=== PATIENT | female | born 1975 | race Caucasian/White ===

== ENCOUNTER 2017-07-24 10:29 | Emergency (ER) | payer MEDICARE, MEDICAID ==
[2017-07-24 12:02] VITALS: BP 100/71
--- NOTE | 2017-07-24 12:25 | UC ---
Skin Complaint HPI - HPI Summary HPI Summary: patient has quigley d alump on her upper right shoulder for the past few months, though it was a muscle knot, went to the massage therapsit to have it worked on , it is not larger, more painful, - History of Current Complaint Chief Complaint: UCSkin Time Seen by Provider: 07/24/17 12:09 Stated Complaint: SKIN COMPLAINT-NECK Hx Obtained From: Patient Hx Last Menstrual Period: 07/16/17 ?: No Onset/Duration: Sudden Onset, Worse Since - 2 days ago Skin Exposure Onset/Duration: Weeks Ago Timing: Constant Onset Severity: Mild Current Severity: Severe Pain Intensity: 10 Character: Swelling, Raised, Painful Aggravating Factor(s): Touch Alleviating Factor(s): Nothing - Allergy/Home Medications Allergies/Adverse Reactions: Allergies Allergy/AdvReac Type Severity Reaction Status Date / Time No Known Allergies Allergy Verified 07/24/17 11:58 Home Medications: Home Medications Ezetimibe TAB* [Zetia TAB*] 10 mg PO DAILY 07/24/17 [History Confirmed 07/24/17] Ibuprofen TAB* [Motrin TAB* 400 MG] 400 mg PO Q6H PRN 07/24/17 [History Confirmed 07/24/17] Norethindrone [Ryann] 0.35 mg PO DAILY 07/24/17 [History Confirmed 07/24/17] Rosuvastatin Calcium [Crestor] 20 mg PO DAILY 07/24/17 [History Confirmed ] Venlafaxine TAB (NF) [Effexor TAB (NF)] 150 mg PO DAILY 07/24/17 [History Confirmed 07/24/17] clonazePAM TAB(*) [KlonoPIN TAB(*)] 0.5 mg PO BEDTIME 07/24/17 [History Confirmed 07/24/17] Review of Systems Constitutional: Negative Skin: Other - large lump Eyes: Negative ENT: Negative Respiratory: Negative Cardiovascular: Negative Gastrointestinal: Negative Genitourinary: Negative Motor: Negative Neurovascular: Negative Musculoskeletal: Negative, Calf Tenderness Psychological: Negative Is Patient Immunocompromised?: No All Other Systems Reviewed And Are Negative: Yes PMH/Surg Hx/FS Hx/Imm Hx Previously Healthy: Yes - Surgical History Surgical History: Yes Surgery Procedure, Year, and Place: TRACHEOTOMY - Family History Known Family History: Negative: Cardiac Disease, Hypertension - Social History Alcohol Use: Occasionally Substance Use Type: None Smoking Status (MU): Never Smoked Tobacco Physical Exam Triage Information Reviewed: Yes Appearance: Well-Appearing, Well-Nourished, Pain Distress Vital Signs: Initial Vital Signs Temp 98.4 F 07/24/17 11:54 Pulse 75 07/24/17 11:54 Resp 16 07/24/17 11:54 BP 100/71 07/24/17 11:54 Pulse Ox 100 07/24/17 11:54 Vital Signs Reviewed: Yes Eye Exam: Normal ENT Exam: Normal Dental Exam: Normal Neck exam: Normal Neck: Positive: Supple, Nontender, No Lymphadenopathy Respiratory Exam: Normal Respiratory: Positive: Chest non-tender, Lungs clear, Normal breath sounds Cardiovascular Exam: Normal Cardiovascular: Positive: RRR, No Murmur, Pulses Normal Abdominal Exam: Normal Abdomen Description: Positive: Nontender, No Organomegaly Bowel Sounds: Positive: Present Musculoskeletal Exam: Normal Neurological Exam: Normal Psychological Exam: Normal Skin: Positive: significant lesion(s) - large cyst noted over right trap, movable, soft, non red, very tender to touch Course/Dx - Course Course Of Treatment: hx obtained, exam performed ,meds reviewed, treated for infection of subaceous cyst - Differential Diagnoses - Skin Complaint Differential Diagnoses: Abscess, Contact Dermatitis, Lymphadenitis, Lymphangitis - Diagnoses Provider Diagnoses: sebaceous cyst Discharge - Sign-Out/Discharge Documenting (check all that apply): Discharge - Discharge Plan Condition: Stable Disposition: HOME Prescriptions: Cephalexin CAP* [Keflex CAP*] 500 mg PO TID #21 cap Patient Education Materials: Epidermal Inclusion Cysts (ED) Referrals: Max Malave MD [Primary Care Provider] - Additional Instructions: 1. take the medication as prescribed. 2. warm compressed to the area multiple times a day 3. Ibuprofen or aleve as needed for pain. - Billing Disposition and Condition Condition: STABLE Disposition: HOME
== END 2017-07-24 12:39 | disposition home or self-care (01) ==
LOC: UCCORT 10:29
DX: L72.3 Sebaceous cyst (principal)
CPT/HCPCS: 99212; G0463

== ENCOUNTER 2018-05-30 16:28 | Emergency (ER) | payer MEDICARE, MEDICAID ==
[2018-05-30 16:45] VITALS: BP 132/95
[2018-05-30 16:55] LABS: Influenza A Molecular POSITIVE (Negative)
--- NOTE | 2018-05-30 17:03 | UC ---
FLU HPI - HPI Summary HPI Summary: C/O fevers/ chills/ headache and body aches today. Exposed to the flu at work. Did get the flu shot - History of Current Complaint Chief Complaint: UCRespiratory Stated Complaint: FLU SXS Hx Obtained From: Patient Hx Last Menstrual Period: 05/24/18 ?: No Onset/Duration: Sudden Onset, Lasting Days - 1, Worse Since - onset Severity Currently: Moderate Severity Initially: Mild Pain Intensity: 6 Associated Signs & Symptoms: Positive: Fever, Myalgia, Cough, Sore Throat, Headache Related Hx: Possible Flu/Infectious Exposure, Smoking - Allergy/Home Medications Allergies/Adverse Reactions: Allergies Allergy/AdvReac Type Severity Reaction Status Date / Time No Known Allergies Allergy Verified 05/30/18 16:40 PMH/Surg Hx/FS Hx/Imm Hx Endocrine History: Dyslipidemia - Surgical History Surgical History: Yes Surgery Procedure, Year, and Place: TRACHEOTOMY - Family History Known Family History: Positive: Cardiac Disease Negative: Hypertension - Social History Occupation: Employed Part-time Lives: With Family Alcohol Use: None Substance Use Type: None Smoking Status (MU): Light Every Day Tobacco Smoker Type: Cigarettes Amount Used/How Often: 3 CIGS/DAY Cessation Counseling: Patient Advised to Stop Review of Systems All Other Systems Reviewed And Are Negative: Yes Constitutional: Positive: Fever ENT: Positive: Sore Throat Respiratory: Positive: Shortness Of Breath - wheezing, Cough Musculoskeletal: Positive: Arthralgia Neurological: Positive: Headache Is Patient Immunocompromised?: No Physical Exam Triage Information Reviewed: Yes Appearance: No Pain Distress, Well-Nourished, Ill-Appearing Vital Signs: Initial Vital Signs Temp 100.2 F 05/30/18 16:41 Pulse 110 05/30/18 16:41 Resp 16 05/30/18 16:41 BP 132/95 05/30/18 16:41 Pulse Ox 99 05/30/18 16:41 Vital Signs Reviewed: Yes Eyes: Positive: Conjunctiva Inflamed ENT: Positive: Pharynx normal, TMs normal Neck exam: Normal Respiratory: Positive: Wheezing - Expiratory wheezes with coughing. Cardiovascular Exam: Normal Musculoskeletal Exam: Normal Neurological Exam: Normal Psychological Exam: Normal Skin Exam: Normal Flu Course/Dx - Differential Dx/Diagnosis Differential Diagnosis/HQI/PQRI: Influenza, Pneumonia, RSV, Upper Respiratory Infection Provider Diagnosis: Influenza A, Bronchospasm, acute Discharge - Sign-Out/Discharge Documenting (check all that apply): Patient Departure All imaging exams completed and their final reports reviewed: No Studies - Discharge Plan Condition: Stable Disposition: HOME Prescriptions: Albuterol HFA INHALER* [Ventolin HFA Inhaler*] 2 puff INH Q4H PRN #1 mdi PRN Reason: Wheezing Oseltamivir CAP* [Tamiflu CAP*] 75 mg PO BID #10 cap predniSONE TAB* [Deltasone 20 MG TAB*] 60 mg PO DAILY #18 tab Patient Education Materials: Influenza (ED), Bronchospasm (ED), Oseltamivir ( By mouth), Prednisone (By mouth) Referrals: Max Malave MD [Primary Care Provider] - Additional Instructions: Smoking Cessation Tricks. 1. Cut down by 1 cigarette per day every 2-3 days. Write the number of smokes for that day on the calendar. 2. Identify triggers to smoking: after meals, on the phone, in the car, with coffee, on breaks at work, etc. 3. Formulate a plan with a behavior to replace the smoking. Fireballs in the car , doodle pad on the phone, flavored creamer for the coffee, go for a walk after a meal or on break at work. 4. For stress smokes do deep breathing relaxation. Breath deep in through the nose hold the breath in for a few seconds then breath out slowly through the mouth. - Billing Disposition and Condition Condition: STABLE Disposition: Home
== END 2018-05-30 17:18 | disposition home or self-care (01) ==
LOC: UCCORT 16:28
DX: J10.1 Influenza due to other identified influenza virus with other respiratory manifestations (principal); J98.01 Acute bronchospasm; F17.210 Nicotine dependence, cigarettes, uncomplicated
CPT/HCPCS: 99212; G0463

== ENCOUNTER 2018-10-11 09:24 | Emergency (ER) | payer MEDICARE, MEDICAID ==
[2018-10-11 09:50] VITALS: BP 120/79
--- NOTE | 2018-10-11 09:52 | UC ---
Respiratory Complaint HPI - HPI Summary HPI Summary: Patient presents to urgent care reporting progressive cough and congestion. Patient is initially was others at this filled on her lungs. Patient states she doesn't wish a short of breath. Patient coughing with yellow secretions. No fevers or chills. Patient states that she takes a deep that she hears a wheeze. No chest pain no nausea vomiting. Patient states she has had pneumonia twice in the past once requiring intubation and tracheostomy. Patient states that was several years ago and is unsure why she got so sick with pneumonia. Patient has not had a diagnosis of lung disease, asthma or COPD. Patient states she is not . Medications reviewed this visit. - History of Current Complaint Chief Complaint: UCGeneralIllness Stated Complaint: SINUS COMPLAINT,COUGH Time Seen by Provider: 10/11/18 09:44 Hx Obtained From: Patient Hx Last Menstrual Period: currently ?: No Timing: Constant Severity Initially: Mild Severity Currently: Mild Pain Intensity: 3 Pain Scale Used: 0-10 Numeric Character: Cough: Productive - yellow Alleviating Factors: Nothing Associated Signs And Symptoms: Positive: URI, Nasal Congestion - Allergies/Home Medications Allergies/Adverse Reactions: Allergies Allergy/AdvReac Type Severity Reaction Status Date / Time No Known Allergies Allergy Verified 10/11/18 09:50 Home Medications: Home Medications Benzonatate CAP* [Tessalon 100 MG CAP*] 100 mg PO DAILY PRN 10/11/18 [History Confirmed 10/11/18] PMH/Surg Hx/FS Hx/Imm Hx Previously Healthy: Yes Respiratory History: Pneumonia, Other - intubation with tracheostomy - Surgical History Surgical History: Yes Surgery Procedure, Year, and Place: TRACHEOTOMY - Family History Known Family History: Positive: Cardiac Disease, Non-Contributory Negative: Hypertension - Social History Occupation: Works From/At Home Lives: With Family Alcohol Use: Occasionally Substance Use Type: None Smoking Status (MU): Light Every Day Tobacco Smoker Type: Cigarettes Amount Used/How Often: 3 CIGS/DAY Review of Systems All Other Systems Reviewed And Are Negative: Yes Constitutional: Positive: Negative Skin: Positive: Negative Eyes: Positive: Negative ENT: Positive: Sinus Congestion Respiratory: Positive: Cough Cardiovascular: Positive: Negative Gastrointestinal: Positive: Negative Is Patient Immunocompromised?: No Physical Exam - Summary Physical Exam Summary: Vital Signs Reviewed: Yes A+Ox3, intermittent cough Eyes: Conjunctiva Clear, ESME. 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 Patient states she feels she can review of coughing less. Patient with improved breath sounds. Chest x-ray negative for acute infiltrate. We'll put patient on a course of antibiotics as well as prednisone. We'll also MDI. Patient is an appointment tomorrow with her PCP to follow-up for her cholesterol. Patient given strict instructions reamers progressive symptoms change. Patient comfortable in agreement with plan. Secretion precautions. Respiratory Course/Dx - Course Course Of Treatment: Patient presents to urgent care with progressive head congestion postnasal drip and now cough and congestion. Patient states with yellow sputum. No fevers or chills. Patient states she feels wheezy. Patient with a history of pneumonia requiring intubation. Patient without an underlying diagnosis of lung disease. Vital signs are stable. On exam patient does have a coarse intermittent cough. Patient with scattered expiratory respiratory wheezes. No rhonchi. Patient able to speak full sentences except for coughing. We'll check chest x- ray DuoNeb and reassessed. - Differential Dx/Diagnosis Provider Diagnosis: Acute bronchitis Discharge - Sign-Out/Discharge Documenting (check all that apply): Patient Departure All imaging exams completed and their final reports reviewed: Yes - Discharge Plan Condition: Stable Disposition: HOME Prescriptions: Albuterol HFA INHALER* [Ventolin HFA Inhaler*] 2 puff INH Q4H PRN #1 mdi PRN Reason: wheeze Amoxicillin/Clavulanate TAB* [Augmentin TAB 875*] 875 mg PO BID #20 tab Fluconazole [Diflucan 150 MG (NF)] 150 mg PO ONCE PRN #1 tab PRN Reason: vaginal yeast infection predniSONE TAB* [Deltasone TAB*] 50 mg PO DAILY #5 tab Patient Education Materials: Acute Bronchitis (ED) Referrals: Max Malave MD [Primary Care Provider] - (tomorrow as scheduled) Additional Instructions: -Take antibiotics and prednisone exactly as prescribed until gone -Use your albuterol puffer - 2 puffs every 4 hours for the next 2 days - then as needed -Stay well hydrated - avoid excess caffeine and all alcohol - eat regular, healthy meals - Humidify the air in the room where you sleep - boil water, run a hot steam shower, vaporizer, cups of water by heat register - okay to take over the counter decongestant and cough medication -- These infections are spread by secretions - do NOT share eating or drinking utensils - clean items you share with other people such as cell phones, computer mouse, TV remote, computer tablets,etc.. Once you have been antibiotics for 2 days, change your toothbrush and your pillowcase. -Keep your appointment tomorrow with your primary doctor as scheduled. If you have any change in your symtoms, increased shortness of breath, vomiting or anything else - it is recommended you go directly to the emergency department You have been given a prescription for diflucan - okay to take if you develop an antibiotics related vaginal yeast infection As discussed, the radiologist report of your chest xray was not available for review before you were discharged. If there is a finding other than that discussed with you, you will receive a call from a care team guide - Billing Disposition and Condition Condition: STABLE Disposition: Home
[2018-10-11] MEDS ORDERED: Albuterol/Ipratropium NEB.SOL* Albuterol 2.5 MG/Ipratropium 0.5 MG 3 ML INH ONE (10:19)
== END 2018-10-11 11:36 | disposition home or self-care (01) ==
LOC: UCCORT 09:24
DX: J20.9 Acute bronchitis, unspecified (principal); F17.210 Nicotine dependence, cigarettes, uncomplicated
CPT/HCPCS: 71046; 99212; A9270-GY; G0463